=== PATIENT | female | born 1965 | race Two or more races ===

== ENCOUNTER → 2017-02-19 | Outpatient (CLI) | payer OTHER | END | disposition home or self-care (01) | LOC: MAMMO 15:40 | PROVIDERS: ATTEND Nurse Practitioner | DX: Z12.31 Encounter for screening mammogram for malignant neoplasm of breast (principal) | CPT/HCPCS: G0202; 77067 ==

== ENCOUNTER 2020-05-08 19:31 | Emergency (ER) | payer OTHER ==
[~2020-05-08] VITALS: Ht 160 cm; Wt 109.0 kg
[2020-05-08 20:44] VITALS: BP 170/91
--- NOTE | 2020-05-08 21:13 | RAD ---
EXAM: TOES LEFT 05/08/2020 8:41 PM CLINICAL INDICATION:Trauma COMPARISON:None TECHNIQUE:3 views of the left great toe FINDINGS:There is an oblique minimally displaced fracture of the great toe distal phalanx, best appreciated on lateral view. No intra-articular extension Alignment is normal. There is a juxta articular erosion at the medial head of the great toe metatarsal suggesting inflammatory or crystalline arthritis. No focal soft tissue abnormality. IMPRESSION:Minimal displaced fracture of the great toe distal phalanx. Electronically signed by: Lynn Guerra MD (05/08/2020 9:10 PM) [id number]
--- NOTE | 2020-05-08 21:31 | PHYS DOC ---
Past History Past Medical History: No Pertinent History Past Surgical History: No Surgical History Alcohol Use: None General Adult EDM: Chief Complaint: LACERATION/AVULSION HPI: HPI: 54-year-old female presents with left great toe laceration and pain. Patient was getting out of the shower when she struck her toe against the edge of the glass causing a laceration. She denies any other injuries. Denies fever or chills. Review of Systems: Review of Systems: Constitutional: Denies fever or chills Eyes: Denies change in visual acuity HENT: Denies nasal congestion or sore throat Respiratory: Denies cough or shortness of breath Cardiovascular: Denies chest pain or edema GI: Denies abdominal pain, nausea, vomiting, bloody stools or diarrhea : Denies dysuria Musculoskeletal: Left great toe pain Integument: Denies rash Neurologic: Denies headache, focal weakness or sensory changes Endocrine: Denies polyuria or polydipsia Lymphatic: Denies swollen glands Psychiatric: Denies depression or anxiety Heart Score: Risk Factors: Risk Factors: DM, Current or recent (<one month) smoker, HTN, HLP, family history of CAD, obesity. Risk Scores: Score 0 - 3: 2.5% MACE over next 6 weeks - Discharge Home Score 4 - 6: 20.3% MACE over next 6 weeks - Admit for Clinical Observation Score 7 - 10: 72.7% MACE over next 6 weeks - Early Invasive Strategies Allergies: Allergies: Allergies Coded Allergies Type Severity Reaction Last Updated Verified sumatriptan Allergy Unknown 05/08/20 Yes Physical Exam: PE: Constitutional: Well developed, well nourished, no acute distress, non-toxic appearance. [] HENT: Normocephalic, atraumatic, bilateral external ears normal, oropharynx moist, no oral exudates, nose normal. [] Eyes: PERRLA, EOMI, conjunctiva normal, no discharge. [] Neck: Normal range of motion, no tenderness, supple, no stridor. [] Cardiovascular:Heart rate regular rhythm, no murmur [] Lungs & Thorax: Bilateral breath sounds clear to auscultation [] Abdomen: Bowel sounds normal, soft, no tenderness, no masses, no pulsatile masses. [] Skin: 2 cm laceration of the distal left great toe [] Back: No tenderness, no CVA tenderness. [] Extremities: Swelling and tenderness of the left great toe [] Neurologic: Alert and oriented X 3, normal motor function, normal sensory function, no focal deficits noted. [] Psychologic: Affect normal, judgement normal, mood normal. [] Current Patient Data: Vital Signs: Vital Signs Date Time Temp Pulse Resp B/P (MAP) Pulse Ox O2 Delivery O2 Flow Rate FiO2 05/08/20 20:44 97.9 68 14 170/91 (117) 98 Room Air EKG: EKG: [] Radiology/Procedures: Radiology/Procedures: [] Impressions: EXAM: TOES LEFT 05/08/2020 8:41 PM CLINICAL INDICATION:Trauma COMPARISON:None TECHNIQUE:3 views of the left great toe FINDINGS:There is an oblique minimally displaced fracture of the great toe distal phalanx, best appreciated on lateral view. No intra-articular extension Alignment is normal. There is a juxta articular erosion at the medial head of the great toe metatarsal suggesting inflammatory or crystalline arthritis. No focal soft tissue abnormality. IMPRESSION:Minimal displaced fracture of the great toe distal phalanx. Electronically signed by: Lynn Guerra MD (05/08/2020 9:10 PM) [id number] DICTATED AND SIGNED BY: LYNN GUERRA MD DATE: 05/08/202109 CC: BRIAN ALARCON DO; PCP,UNKNOWN ~ Course & Med Decision Making: Course & Med Decision Making Pertinent Labs and Imaging studies reviewed. (See chart for details) Patient has a fracture of the left great toe. The patient has elected not to repair the laceration with sutures. It will heal fine with wrapping. This is technically an open fracture so I will treat her with 7 days of Keflex. I also discharge her with [place] 5/325 for pain. She is stable for discharge at this time. [] Dragon Disclaimer: Dragon Disclaimer: This electronic medical record was generated, in whole or in part, using a voice recognition dictation system. Departure Departure: Impression: Primary Impression: Open fracture of left great toe Qualified Codes: S92.425B - Nondisplaced fracture of distal phalanx of left great toe, initial encounter for open fracture Disposition: 01 HOME/RESIDENCE PRIOR TO ADM Condition: STABLE Referrals: PCP,UNKNOWN (PCP) Patient Instructions: Toe Fracture, [facility] Scripts Hydrocodone Bit/Acetaminophen (NORCO 5-325 TABLET) 1 Each Tablet 1 TAB PO PRN Q6HRS PRN for PAIN, #14 TAB 0 Refills Prov: BRIAN ALARCON DO 05/08/20 BRIAN ALARCON DO May 08, 2020 21:31
[2020-05-08] MEDS ORDERED: CEPHALEXIN 250 MG CAPSULE PO ONE (21:45)
[2020-05-08] MEDS ORDERED: HYDROcodone/APAP 7.5/325MG 1 TAB TABLET PO ONE (21:45)
[2020-05-08] MEDS ORDERED: HYDR-3165 PO (21:45)
[2020-05-08] MEDS ORDERED: HYDROcodone/APAP 7.5/325MG 1 TAB TABLET ONE (21:50)
[2020-05-08] MEDS ORDERED: CEPHALEXIN 250 MG CAPSULE ONE (21:50)
== END 2020-05-08 21:57 | disposition home or self-care (01) ==
LOC: ER 19:31
DX: S92.425B Nondisplaced fracture of distal phalanx of left great toe, initial encounter for open fracture (principal); Z88.8 Allergy status to other drugs, medicaments and biological substances; W25.XXXA Contact with sharp glass, initial encounter; Y93.89 Activity, other specified; Y92.89 Other specified places as the place of occurrence of the external cause; Y99.8 Other external cause status
CPT/HCPCS: 12001; 73660; 99283